=== PATIENT | female | born 1935 | race Caucasian/White ===

== ENCOUNTER 2022-02-19 10:54 | Inpatient (IN) ==
[2022-02-21] MEDS ORDERED: D5% in Water 1,000 ML IVC PRN (10:45)
[2022-02-21] MEDS ORDERED: Dextrose 4 GM Chewable Tablets PO PRN ×2 (10:45)
[2022-02-21] MEDS ORDERED: *HR* Dextrose 50 % in Water (Syg) 50 ML SYRINGE IVP PRN (10:45)
[2022-02-21] MEDS ORDERED: Albuterol 2.5 MG/3 ML NEBULIZER IH PRN (10:47)
[2022-02-21] MEDS ORDERED: Azelastine 0.1% Nasal Spray 30 ML BOTTLE NS PRN (10:47)
[2022-02-21] MEDS ORDERED: Ondansetron ODT 4 MG TAB.RAPDIS SL PRN (10:50)
[2022-02-21] MEDS ORDERED: Acetaminophen 325 MG TABLET PO PRN (10:50)
[2022-02-21] MEDS: Insulin LISPRO 300 UNITS/3 ML VIAL SUBQ SCH ×3 (13:02→21:05)
[2022-02-21] MEDS ORDERED: Revefenacin [Yupelri] 175 MCG/3 ML Vial.Neb IH SCH (18:00)
[2022-02-21] MEDS ORDERED: NON-FORMULARY MEDICATION 1 EACH EACH (Formoterol Fumarate [Perforomist] 20 MCG/2 ML Vial.N IH SCH (21:00)
[2022-02-21] MEDS: Sennosides/Docusate Sodium TABLET PO SCH (21:23)
[2022-02-21] MEDS: Budesonide Neb 0.5 MG/2 ML IH SCH (22:14)
[2022-02-22] MEDS: Insulin LISPRO 300 UNITS/3 ML VIAL SUBQ SCH ×4 (07:11→20:31)
[2022-02-22] MEDS: Sennosides/Docusate Sodium TABLET PO SCH (07:31)
[2022-02-22 07:40] LABS: Basophils # 0.1 K/mcL (0.0-0.2); Basophils % 0.6 %; Eosinophils # 0.2 K/mcL (0.0-0.6); Eosinophils % 2.4 %; Hematocrit 35.7 % (35.3-44.9); Immature Granulocytes % 0.3 % (0-4); Lymphocytes # 2.2 K/mcL (0.6-4.6); Lymphocytes % 23.3 %; Mean Corpuscular HGB Conc 30.8 g/dL (31.6-35.5); Mean Corpuscular Hemoglobin 29.3 pg (28.0-33.3); Mean Corpuscular Volume 95.2 fL (83.0-100.0); Mean Platelet Volume 9.6 fL (9.4-12.4); Monocytes % 10.7 %; Neutrophils # 5.9 K/mcL (1.6-8.9); Platelet Count 332 K/mcL (140-400); Red Blood Count 3.75 M/mcL (3.82-4.97); Red Cell Distribution Width 13.2 % (11.5-14.5); Segmented Neutrophils % 62.7 %; White Blood Count 9.4 K/mcL (4.3-11.1)
[2022-02-22 07:53] LABS: Calcium 9.9 mg/dL (8.6-10.3); Potassium 3.4 mEq/L (3.5-5.1)
[2022-02-22] MEDS: Aspirin Enteric Coated 81 MG Tablet PO SCH (08:50)
[2022-02-22] MEDS: ARIPiprazole 2 MG TABLET PO SCH (08:50)
[2022-02-22] MEDS: Multivit/Ca/Min/Fe/FA 1 TAB TABLET PO SCH (08:50)
[2022-02-22] MEDS: BuPROPion XL (24 HR) 150 MG TABLET PO SCH (08:51)
[2022-02-22] MEDS: Loratadine 10 MG TABLET PO SCH (08:51)
[2022-02-22] MEDS ORDERED: amLODIPine 5 MG TABLET PO SCH (09:00)
[2022-02-22] MEDS: Budesonide Neb 0.5 MG/2 ML IH SCH ×2 (09:19→21:20)
[2022-02-22] MEDS ORDERED: Revefenacin [Yupelri] 175 MCG/3 ML Vial.Neb AER SCH ×2 (18:00)
[2022-02-23] MEDS: Insulin LISPRO 300 UNITS/3 ML VIAL SUBQ SCH ×4 (07:43→21:15)
[2022-02-23] MEDS: Aspirin Enteric Coated 81 MG Tablet PO SCH (08:39)
[2022-02-23] MEDS: ARIPiprazole 2 MG TABLET PO SCH (08:39)
[2022-02-23] MEDS: BuPROPion XL (24 HR) 150 MG TABLET PO SCH (08:40)
[2022-02-23] MEDS: Loratadine 10 MG TABLET PO SCH (08:40)
[2022-02-23] MEDS: Multivit/Ca/Min/Fe/FA 1 TAB TABLET PO SCH (08:40)
[2022-02-23] MEDS ORDERED: Denosumab 60 MG/ML SYRINGE SQ ONE (09:00)
[2022-02-23] MEDS: Budesonide Neb 0.5 MG/2 ML IH SCH ×2 (09:28→21:20)
[2022-02-23 09:31] LABS: % Iron Saturation 17 % (15-50); Ferritin 305 ng/mL (10-120); Iron 45 mcg/dL (50-170); Transferrin 194 mg/dL (203-362)
[2022-02-23] MEDS: Revefenacin [Yupelri] 175 MCG/3 ML Vial.Neb AER SCH (21:20)
[2022-02-24] MEDS: Insulin LISPRO 300 UNITS/3 ML VIAL SUBQ SCH ×4 (07:40→21:46)
[2022-02-24] MEDS: BuPROPion XL (24 HR) 150 MG TABLET PO SCH (08:12)
[2022-02-24] MEDS: Aspirin Enteric Coated 81 MG Tablet PO SCH (08:13)
[2022-02-24] MEDS: Multivit/Ca/Min/Fe/FA 1 TAB TABLET PO SCH (08:13)
[2022-02-24] MEDS: Loratadine 10 MG TABLET PO SCH (08:13)
[2022-02-24] MEDS: ARIPiprazole 2 MG TABLET PO SCH (08:13)
[2022-02-24] MEDS: Budesonide Neb 0.5 MG/2 ML IH SCH ×2 (10:54→22:40)
[2022-02-24] MEDS: Revefenacin [Yupelri] 175 MCG/3 ML Vial.Neb AER SCH (22:40)
[2022-02-24] MEDS: FORMOTEROL 20 MCG/2 ML AER SCH (22:41)
[2022-02-25] MEDS: *HR* Enoxaparin 30 MG/0.3 ML SYRINGE SQ SCH (06:52)
[2022-02-25] MEDS: Aspirin Enteric Coated 81 MG Tablet PO SCH (08:46)
[2022-02-25] MEDS: BuPROPion XL (24 HR) 150 MG TABLET PO SCH (08:46)
[2022-02-25] MEDS: Multivit/Ca/Min/Fe/FA 1 TAB TABLET PO SCH (08:46)
[2022-02-25] MEDS: Insulin LISPRO 300 UNITS/3 ML VIAL SUBQ SCH ×4 (08:46→20:51)
[2022-02-25] MEDS: Loratadine 10 MG TABLET PO SCH (08:46)
[2022-02-25] MEDS: ARIPiprazole 2 MG TABLET PO SCH (08:47)
[2022-02-25] MEDS: Budesonide Neb 0.5 MG/2 ML IH SCH ×2 (09:12→21:53)
[2022-02-25] MEDS: FORMOTEROL 20 MCG/2 ML AER SCH ×2 (09:14→21:53)
[2022-02-25] MEDS: Revefenacin [Yupelri] 175 MCG/3 ML Vial.Neb AER SCH (21:53)
[2022-02-26] MEDS: *HR* Enoxaparin 30 MG/0.3 ML SYRINGE SQ SCH (05:41)
[2022-02-26] MEDS: Insulin LISPRO 300 UNITS/3 ML VIAL SUBQ SCH ×3 (07:06→17:08)
[2022-02-26] MEDS: BuPROPion XL (24 HR) 150 MG TABLET PO SCH (09:15)
[2022-02-26] MEDS: ARIPiprazole 2 MG TABLET PO SCH (09:15)
[2022-02-26] MEDS: Loratadine 10 MG TABLET PO SCH (09:15)
[2022-02-26] MEDS: Multivit/Ca/Min/Fe/FA 1 TAB TABLET PO SCH (09:15)
[2022-02-26] MEDS: Aspirin Enteric Coated 81 MG Tablet PO SCH (09:15)
[2022-02-26] MEDS: Sennosides/Docusate Sodium TABLET PO SCH ×2 (09:31→20:23)
[2022-02-26] MEDS: FORMOTEROL 20 MCG/2 ML AER SCH ×2 (10:52→20:59)
[2022-02-26] MEDS: Budesonide Neb 0.5 MG/2 ML IH SCH ×2 (10:52→20:58)
[2022-02-26] MEDS: Revefenacin [Yupelri] 175 MCG/3 ML Vial.Neb AER SCH (20:59)
[2022-02-27] MEDS: *HR* Enoxaparin 30 MG/0.3 ML SYRINGE SQ SCH (05:39)
[2022-02-27] MEDS: Insulin LISPRO 300 UNITS/3 ML VIAL SUBQ SCH ×3 (07:09→16:33)
[2022-02-27] MEDS: Multivit/Ca/Min/Fe/FA 1 TAB TABLET PO SCH (09:01)
[2022-02-27] MEDS: ARIPiprazole 2 MG TABLET PO SCH (09:01)
[2022-02-27] MEDS: Loratadine 10 MG TABLET PO SCH (09:01)
[2022-02-27] MEDS: BuPROPion XL (24 HR) 150 MG TABLET PO SCH (09:01)
[2022-02-27] MEDS: Aspirin Enteric Coated 81 MG Tablet PO SCH (09:01)
[2022-02-27] MEDS: Sennosides/Docusate Sodium TABLET PO SCH ×2 (09:01→20:29)
[2022-02-27] MEDS: FORMOTEROL 20 MCG/2 ML AER SCH ×2 (09:36→22:36)
[2022-02-27] MEDS: Budesonide Neb 0.5 MG/2 ML IH SCH ×2 (09:36→22:35)
[2022-02-27] MEDS: Revefenacin [Yupelri] 175 MCG/3 ML Vial.Neb AER SCH (22:36)
[2022-02-28] MEDS: *HR* Enoxaparin 30 MG/0.3 ML SYRINGE SQ SCH (06:05)
[2022-02-28] MEDS: Insulin LISPRO 300 UNITS/3 ML VIAL SUBQ SCH ×3 (07:32→16:42)
[2022-02-28] MEDS: Sennosides/Docusate Sodium TABLET PO SCH ×2 (07:48→19:45)
[2022-02-28] MEDS: Aspirin Enteric Coated 81 MG Tablet PO SCH (07:49)
[2022-02-28] MEDS: ARIPiprazole 2 MG TABLET PO SCH (07:49)
[2022-02-28] MEDS: Multivit/Ca/Min/Fe/FA 1 TAB TABLET PO SCH (07:49)
[2022-02-28] MEDS: Loratadine 10 MG TABLET PO SCH (07:49)
[2022-02-28] MEDS: BuPROPion XL (24 HR) 150 MG TABLET PO SCH (07:49)
[2022-02-28 08:04] LABS: Hemoglobin 9.8 g/dL (11.5-15.4); Mean Corpuscular HGB Conc 30.6 g/dL (31.6-35.5); Mean Corpuscular Hemoglobin 29.3 pg (28.0-33.3); Mean Corpuscular Volume 95.8 fL (83.0-100.0); Mean Platelet Volume 9.9 fL (9.4-12.4); Platelet Count 291 K/mcL (140-400); Red Blood Count 3.34 M/mcL (3.82-4.97); Red Cell Distribution Width 13.5 % (11.5-14.5); White Blood Count 9.2 K/mcL (4.3-11.1)
[2022-02-28 08:25] LABS: Calcium 8.4 mg/dL (8.6-10.3); Potassium 3.9 mEq/L (3.5-5.1)
[2022-02-28] MEDS: FORMOTEROL 20 MCG/2 ML AER SCH ×2 (09:12→21:37)
[2022-02-28] MEDS: Budesonide Neb 0.5 MG/2 ML IH SCH ×2 (09:12→21:30)
[2022-02-28] MEDS: Revefenacin [Yupelri] 175 MCG/3 ML Vial.Neb AER SCH (21:37)
[2022-03-01] MEDS: *HR* Enoxaparin 30 MG/0.3 ML SYRINGE SQ SCH (06:34)
[2022-03-01] MEDS: Insulin LISPRO 300 UNITS/3 ML VIAL SUBQ SCH ×3 (08:38→17:59)
[2022-03-01] MEDS: Aspirin Enteric Coated 81 MG Tablet PO SCH (08:39)
[2022-03-01] MEDS: Sennosides/Docusate Sodium TABLET PO SCH ×3 (08:39→20:20)
[2022-03-01] MEDS: BuPROPion XL (24 HR) 150 MG TABLET PO SCH (08:40)
[2022-03-01] MEDS: ARIPiprazole 2 MG TABLET PO SCH (08:40)
[2022-03-01] MEDS: Loratadine 10 MG TABLET PO SCH (08:40)
[2022-03-01] MEDS: Multivit/Ca/Min/Fe/FA 1 TAB TABLET PO SCH (08:40)
[2022-03-01] MEDS: FORMOTEROL 20 MCG/2 ML AER SCH ×2 (10:37→21:59)
[2022-03-01] MEDS: Budesonide Neb 0.5 MG/2 ML IH SCH ×2 (10:37→21:59)
[2022-03-01] MEDS: Revefenacin [Yupelri] 175 MCG/3 ML Vial.Neb AER SCH (21:59)
[2022-03-02] MEDS: *HR* Enoxaparin 30 MG/0.3 ML SYRINGE SQ SCH (06:23)
[2022-03-02] MEDS: Aspirin Enteric Coated 81 MG Tablet PO SCH (09:14)
[2022-03-02] MEDS: BuPROPion XL (24 HR) 150 MG TABLET PO SCH (09:14)
[2022-03-02] MEDS: ARIPiprazole 2 MG TABLET PO SCH (09:14)
[2022-03-02] MEDS: Multivit/Ca/Min/Fe/FA 1 TAB TABLET PO SCH (09:14)
[2022-03-02] MEDS: Insulin LISPRO 300 UNITS/3 ML VIAL SUBQ SCH ×3 (09:14→17:38)
[2022-03-02] MEDS: Loratadine 10 MG TABLET PO SCH (09:14)
[2022-03-02] MEDS: Sennosides/Docusate Sodium TABLET PO SCH (09:15)
[2022-03-02] MEDS: FORMOTEROL 20 MCG/2 ML AER SCH ×2 (09:48→22:11)
[2022-03-02] MEDS: Budesonide Neb 0.5 MG/2 ML IH SCH ×2 (09:49→22:12)
[2022-03-02] MEDS ORDERED: Sennosides/Docusate Sodium TABLET PO PRN (14:53)
[2022-03-02] MEDS: Revefenacin [Yupelri] 175 MCG/3 ML Vial.Neb AER SCH (22:11)
[2022-03-03] MEDS: *HR* Enoxaparin 30 MG/0.3 ML SYRINGE SQ SCH (06:21)
[2022-03-03] MEDS: Insulin LISPRO 300 UNITS/3 ML VIAL SUBQ SCH ×3 (08:09→17:05)
[2022-03-03] MEDS: Loratadine 10 MG TABLET PO SCH (08:33)
[2022-03-03] MEDS: Aspirin Enteric Coated 81 MG Tablet PO SCH (08:33)
[2022-03-03] MEDS: ARIPiprazole 2 MG TABLET PO SCH (08:33)
[2022-03-03] MEDS: BuPROPion XL (24 HR) 150 MG TABLET PO SCH (08:33)
[2022-03-03] MEDS: Multivit/Ca/Min/Fe/FA 1 TAB TABLET PO SCH (08:33)
[2022-03-03] MEDS: FORMOTEROL 20 MCG/2 ML AER SCH ×2 (09:39→21:14)
[2022-03-03] MEDS: Budesonide Neb 0.5 MG/2 ML IH SCH ×2 (09:40→21:14)
[2022-03-03] MEDS: Revefenacin [Yupelri] 175 MCG/3 ML Vial.Neb AER SCH (21:14)
[2022-03-04] MEDS: *HR* Enoxaparin 30 MG/0.3 ML SYRINGE SQ SCH (05:57)
[2022-03-04] MEDS: Insulin LISPRO 300 UNITS/3 ML VIAL SUBQ SCH ×3 (07:25→16:56)
[2022-03-04] MEDS: Aspirin Enteric Coated 81 MG Tablet PO SCH (08:12)
[2022-03-04] MEDS: BuPROPion XL (24 HR) 150 MG TABLET PO SCH (08:12)
[2022-03-04] MEDS: ARIPiprazole 5 MG TABLET PO SCH (08:13)
[2022-03-04] MEDS: Multivit/Ca/Min/Fe/FA 1 TAB TABLET PO SCH (08:13)
[2022-03-04] MEDS: ARIPiprazole 2 MG TABLET PO SCH (08:13)
[2022-03-04] MEDS: Loratadine 10 MG TABLET PO SCH (08:13)
[2022-03-04] MEDS: Budesonide Neb 0.5 MG/2 ML IH SCH ×2 (09:15→21:34)
[2022-03-04] MEDS: FORMOTEROL 20 MCG/2 ML AER SCH ×2 (09:16→21:27)
[2022-03-04] MEDS: Revefenacin [Yupelri] 175 MCG/3 ML Vial.Neb AER SCH (21:27)
[2022-03-05] MEDS: *HR* Enoxaparin 30 MG/0.3 ML SYRINGE SQ SCH (05:59)
[2022-03-05 07:02] VITALS: BP 138/71; PULSE 70; TEMP 97.9
[2022-03-05] MEDS: Insulin LISPRO 300 UNITS/3 ML VIAL SUBQ SCH ×2 (07:36→11:51)
[2022-03-05] MEDS: ARIPiprazole 2 MG TABLET PO SCH (08:14)
[2022-03-05] MEDS: BuPROPion XL (24 HR) 150 MG TABLET PO SCH (08:14)
[2022-03-05] MEDS: Loratadine 10 MG TABLET PO SCH (08:14)
[2022-03-05] MEDS: Aspirin Enteric Coated 81 MG Tablet PO SCH (08:14)
[2022-03-05] MEDS: ARIPiprazole 5 MG TABLET PO SCH (08:14)
[2022-03-05] MEDS: Multivit/Ca/Min/Fe/FA 1 TAB TABLET PO SCH (08:14)
[2022-03-05] MEDS: FORMOTEROL 20 MCG/2 ML AER SCH (09:48)
[2022-03-05] MEDS: Budesonide Neb 0.5 MG/2 ML IH SCH (09:48)
[2022-03-05 11:04] VITALS: RESP 17
[2022-03-05 11:05] VITALS: O2SAT 96
== END 2022-03-05 14:30 | disposition home health service (06) | DRG 684 ==
LOC: INPPIK 02-21 12:16
PROVIDERS: ADMIT Internal Medicine; ATTEND Internal Medicine